=== PATIENT | male | born 1990 | race Two or more races ===

== ENCOUNTER 2024-10-20 15:18 | Emergency (ER) | payer OTHER ==
[~2024-10-20] VITALS: Ht 167.6 cm; Wt 103.0 kg
[2024-10-20] MEDS ORDERED: CYCL-837 PO (16:28)
[2024-10-20] MEDS ORDERED: IBUP-1455 PO (16:28)
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
[2024-10-20 16:37] VITALS: BP 141/84; PULSE 90; RESP 18; TEMP 98.1; O2SAT 98
== END 2024-10-20 16:43 | disposition home or self-care (01) ==
LOC: ER 15:18
DX: S16.1XXA Strain of muscle, fascia and tendon at neck level, initial encounter (principal); S39.012A Strain of muscle, fascia and tendon of lower back, initial encounter; V43.52XA Car driver injured in collision with other type car in traffic accident, initial encounter; Y93.89 Activity, other specified; Y92.410 Unspecified street and highway as the place of occurrence of the external cause; Y99.8 Other external cause status